=== PATIENT | female | born 2000 | race Two or more races ===

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

== ENCOUNTER 2023-03-03 15:33 | Emergency (ER) | payer MEDICAID ==
[~2023-03-03] VITALS: Ht 165.1 cm; Wt 100.6 kg
[2023-03-03 16:42] VITALS: BP 132/92; TEMP 98.6
[2023-03-03] MEDS ORDERED: ALBUTEROL SULF 2.5 MG/0.5ML(0.5%) NEB SOLN NEB ONE (17:00)
[2023-03-03] MEDS ORDERED: methylPREDNISolone SOD SUCC 125 MG/2 ML VL IM ONE (17:00)
[2023-03-03] MEDS ORDERED: IPRATROPIUM BROM 0.5 MG/2.5ML INH SOL NEB ONE (17:00)
[2023-03-03] MEDS ORDERED: ALBUTEROL SULF 2.5 MG/0.5ML(0.5%) NEB SOLN ONE (17:25)
[2023-03-03] MEDS ORDERED: IPRATROPIUM BROM 0.5 MG/2.5ML INH SOL ONE (17:25)
[2023-03-03] MEDS ORDERED: CEPH250S41 PO (17:57)
[2023-03-03] MEDS ORDERED: ALBU108A5 IN (17:57)
[2023-03-03 18:00] VITALS: PULSE 100; RESP 18; O2SAT 98
== END 2023-03-03 18:02 | disposition home or self-care (01) ==
LOC: ER 15:33
DX: J45.901 Unspecified asthma with (acute) exacerbation (principal); J03.90 Acute tonsillitis, unspecified
CPT/HCPCS: 71045; 94640; 96372; 99283; J2930; J7644